=== PATIENT | female | born 1985 | race Caucasian/White ===

== ENCOUNTER 2019-04-11 18:39 | Emergency (ER) | payer OTHER ==
[2019-04-11 18:45] VITALS: RESP 18; TEMP 97.9
[2019-04-11] MEDS ORDERED: KETOROLAC 30 MG/ML 1 ML VIAL IVP STA (19:34)
[2019-04-11] MEDS ORDERED: ONDANSETRON 4 MG/2 ML VIAL IVP STA (19:34)
[2019-04-11] MEDS ORDERED: diphenhydrAMINE 50 MG/ML 1 ML VIAL IVP STA (19:34)
--- NOTE | 2019-04-11 20:07 | ED ---
General Adult HPI - General Chief complaint: Headache Stated complaint: Headache/nausea/vomiting-[facility] Time Seen by Provider: 04/11/19 18:54 Source: patient Mode of arrival: ambulatory Limitations: no limitations - History of Present Illness Initial comments: Patient is a 33-year-old female presenting to emergency Department with a chief complaint of a headache. Patient reports she was outside about 6 hours ago when she developed a bilateral temporal headache that does not radiate anywhere. Patient also reports light sensitivity and nausea along with vomiting. Patient reports a chronic history of migraines and this one feels somewhat typical. Patient denies one-sided parasthesia, muscle weakness or gait instability. Patient reports that she believes the headache has developed because she was standing outside, and it is sent for prolonged periods of time. Patient reports this happens frequently when she stays outside under to some. Patient denies blurry vision, chest pain, chest tightness shortness of breath. - Related Data Home Medications Medication Instructions Recorded Confirmed Fexofenadine HCl [Jazlyn Allergy] 180 mg PO HS 04/11/19 04/11/19 Sertraline [Zoloft] 200 mg PO DAILY 04/11/19 04/11/19 busPIRone HCL 15 mg PO BID 04/11/19 04/11/19 Allergies Allergy/AdvReac Type Severity Reaction Status Date / Time Sulfa (Sulfonamide Allergy Unknown Verified 04/11/19 19:48 Antibiotics) Review of Systems ROS Statement: Those systems with pertinent positive or pertinent negative responses have been documented in the HPI. ROS Other: All systems not noted in ROS Statement are negative. Past Medical History Past Medical History: No Reported History History of Any Multi-Drug Resistant Organisms: None Reported Past Surgical History: No Surgical Hx Reported Past Psychological History: Anxiety Smoking Status: Never smoker Past Alcohol Use History: None Reported Past Drug Use History: None Reported General Exam Limitations: no limitations General appearance: alert, in no apparent distress Head exam: Present: atraumatic, normocephalic, normal inspection Eye exam: Present: normal appearance, PERRL, EOMI Pupils: Present: normal accommodation ENT exam: Present: normal exam, normal oropharynx, mucous membranes moist, TM's normal bilaterally, normal external ear exam Neck exam: Present: normal inspection, full ROM Respiratory exam: Present: normal lung sounds bilaterally Cardiovascular Exam: Present: regular rate, normal rhythm, normal heart sounds Extremities exam: Present: normal inspection, full ROM Back exam: Present: normal inspection, full ROM Neurological exam: Present: alert, oriented X3 Psychiatric exam: Present: normal affect, normal mood Skin exam: Present: warm, intact, normal color Course Vital Signs 04/11/19 18:43 Temperature 97.9 F Pulse Rate 88 Respiratory 18 Rate Blood Pressure 144/81 O2 Sat by Pulse 98 Oximetry Medical Decision Making - Medical Decision Making Patient is a 33-year-old female presenting to emergency Department with a chief complaint of a migraine. Patient was given Toradol, Benadryl and Zofran. On reevaluation patient reports feeling much better. Patient advised to follow-up with primary care for further management. Patient was given Zofran to go home with. Strict return parameters were thoroughly discussed with patient was understanding and agreeable. Case discussed with physician. Disposition Clinical Impression: Headache Disposition: HOME SELF-CARE Condition: Stable Instructions (If sedation given, give patient instructions): Acute Headache (ED) Additional Instructions: Please take prescribed medication as directed. Please follow up with primary care. Please return to emergency department if symptoms worsen. Is patient prescribed a controlled substance at d/c from ED?: No Referrals: Nonstaff,Physician [Primary Care Provider] - 1-2 days Time of Disposition: 20:40
[2019-04-11 21:55] VITALS: BP 135/90; PULSE 81
== END 2019-04-11 21:54 | disposition home or self-care (01) ==
LOC: EC 18:39
DX: G43.909 Migraine, unspecified, not intractable, without status migrainosus (principal); F41.9 Anxiety disorder, unspecified; Z79.899 Other long term (current) drug therapy; Z88.2 Allergy status to sulfonamides
CPT/HCPCS: 99283; 96374; 96375 ×2; J1200; J2405; J1885